=== PATIENT | female | born 1970 | race Caucasian/White ===

== ENCOUNTER 2024-02-15 23:14 | Emergency (ER) | payer BC ==
[2024-02-15] MEDS ORDERED: AMOX/K CLAV 875 MG TAB ONE (23:56)
[2024-02-15] MEDS ORDERED: IBUPROFEN 400 MG TAB ONE (23:56)
[2024-02-15] MEDS ORDERED: HYDROCODONE/APAP 5/325 MG TAB ONE (23:57)
--- NOTE | 2024-02-16 00:03 | ER ---
Nurse's Notes [facility] Name: Cleopatra Workman Age: 53 yrs Sex: Female : 1970 Arrival Date: 02/15/2024 Time: 23:14 Bed 12 Private MD: Diagnosis: Acute suppurative otitis media with spontaneous rupture of ear drum, right ear Presentation: 02/14 23:27 Chief complaint: Patient states: right ear pain and drainage. Coronavirus screen: At as6 this time, the client does not indicate any symptoms associated with coronavirus-19. Ebola Screen: No symptoms or risks identified at this time. Initial Sepsis Screen: Does the patient meet any 2 criteria? No. Patient's initial sepsis screen is negative. Does the patient have a suspected source of infection? No. Patient's initial sepsis screen is negative. Risk Assessment: Do you want to hurt yourself or someone else? Patient reports no desire to harm self or others. Onset of symptoms was February 15, 2024. 23:27 Method Of Arrival: Ambulatory as6 23:27 Acuity: AXEL 4 as6 Triage Assessment: 23:29 General: Appears in no apparent distress. Behavior is calm, cooperative. Pain: as6 Complains of pain in right ear. EENT: Reports pain in right ear. [employer]OR: 23:29 LMP N/A - Post-menopause, Not as6 Historical: - Allergies: 23:29 No Known Allergies; as6 - PMHx: 23:29 Alcoholism; as6 - PSHx: 23:29 hand; as6 - Immunization history:: Adult Immunizations up to date. - Infectious Disease History:: Denies. - Social history:: Smoking status: Patient reports the use of cigarette tobacco products, smokes one pack cigarettes per day. Screenin:48 [facility] ED Fall Risk Assessment (Adult) History of falling in the last 3 months, kl including since admission No falls in past 3 months (0 pts) Confusion or Disorientation No (0 pts) Intoxicated or Sedated No (0 pts) Impaired Gait No (0 pts) Mobility Assist Device Used No (0 pt) Altered Elimination No (0 pt) Score/Fall Risk Level 0 - 2 = Low Risk Oriented to surroundings, Maintained a safe environment. Abuse screen: Denies threats or abuse. Nutritional screening: No deficits noted. Tuberculosis screening: No symptoms or risk factors identified. Assessment: 23:47 General: Appears uncomfortable, Behavior is calm, cooperative. Pain: Complains of pain kl in right ear Pain currently is 8 out of 10 on a pain scale. Pain began 1 day ago. Neuro: No deficits noted. Cardiovascular: No deficits noted. Respiratory: No deficits noted. GI: No deficits noted. No signs and/or symptoms were reported involving the gastrointestinal system. : No deficits noted. No signs and/or symptoms were reported regarding the genitourinary system. EENT: Reports pain in right ear right ear drainage. Derm: No deficits noted. No signs and/or symptoms reported regarding the dermatologic system. Musculoskeletal: No deficits noted. No signs and/or symptoms reported regarding the musculoskeletal system. Vital Signs: 23:27 BP 150 / 79; Pulse 93; Resp 18 S; Temp 98.5(TE); Pulse Ox 96% on R/A; Weight 52.16 kg as6 (R); Height 4 ft. 11 in. (R); Pain 10; 02/15 00:20 BP 140 / 71; Pulse 71; Resp 18; Pulse Ox 99% ; kb3 02/14 23:27 Body Mass Index 23.23 (52.16 kg, 149.86 cm) as6 02/14 23:27 Pain Scale: Adult as6 ED Course: 02/14 23:19 Patient arrived in ED. jj6 23:29 Triage completed. as6 23:29 Arm band placed on. as6 23:38 Demetrius Rutherford PA is PHCP. cp 23:38 Drew Denton MD is Attending Physician. cp 23:48 No provider procedures requiring assistance completed. Patient did not have IV access kl during this emergency room visit. 02/15 00:02 Jessica Mcadams MD is Referral Physician. cp 00:21 Patient has correct armband on for positive identification. Provided Education on: kb3 Follow up, medications. Administered Medications: 02/14 23:59 Drug: Amoxicillin-Clavulanate PO 875 mg PO once Route: PO; kl 23:59 Drug: HYDROcodone-acetaminophen PO 5 mg-325 mg 1 tabs PO once Route: PO; kl 02/15 00:16 Follow up: Response: No adverse reaction; Pain is decreased kb3 02/14 23:59 Drug: Ibuprofen PO 600 mg PO once Route: PO; kl 02/15 00:16 Follow up: Response: No adverse reaction; Pain is decreased kb3 Medication: 00:21 VIS not applicable for this client. kb3 Outcome: 00:03 Discharge ordered by . keith 00:21 Discharged to home ambulatory, kb3 00:21 Condition: improved 00:21 Discharge instructions given to patient, Instructed on discharge instructions, follow up and referral plans. medication usage, Demonstrated understanding of instructions, follow-up care, medications, Prescriptions given X 3, 00:22 Patient left the ED. kb3 Signatures: Viky Pedroza, RN RN Demetrius Milner PA PA cp Jeffries, Jennifer jj6 Hans Sosa RN CASSIE as6 Shreya Beard, RN RN kb3
--- NOTE | 2024-02-16 00:04 | EDPHYS ---
Physician Documentation [facility] Name: Cleopatra Workman Age: 53 yrs Sex: Female : 1970 Arrival Date: 02/15/2024 Time: 23:14 Bed 12 Private MD: ED Physician Drew Denton HPI: 02/15 00:00 This 53 yrs old Female presents to ER via Ambulatory with complaints of Ear Pain, cp Drainage From Ear. 00:00 The patient presents with drainage, that is purulent, pain, tenderness. The complaints cp affect the right ear. 00:00 Onset: The symptoms/episode began/occurred today. cp 00:00 Associated signs and symptoms: Pertinent negatives: fever, sinus trouble. cp [employer]: 02/14 23:29 LMP N/A - Post-menopause, Not as6 Historical: - Allergies: 23:29 No Known Allergies; as6 - PMHx: 23:29 Alcoholism; as6 - PSHx: 23:29 hand; as6 - Immunization history:: Adult Immunizations up to date. - Infectious Disease History:: Denies. - Social history:: Smoking status: Patient reports the use of cigarette tobacco products, smokes one pack cigarettes per day. ROS: 02/15 00:02 Constitutional: HX per HPI cp Exam: 00:02 Constitutional: The patient appears in no acute distress, alert, awake, non-toxic, well cp developed, well nourished, 00:02 Head/Face: Normocephalic, atraumatic. cp 00:02 ENT: External ear(s): are unremarkable, Ear canal(s): purulent discharge, that is moderate, in the right canal, TM's: bulging, on the right, erythema, that is mild, on the right, Examination of the other ear shows no obvious abnormality, Mouth: is normal, Posterior pharynx: Airway: no evidence of obstruction, patent, 00:02 Neck: ROM/movement: is normal, is supple, without pain, no range of motions limitations, 00:02 Cardiovascular: Rate: normal, Vital Signs: 02/14 23:27 BP 150 / 79; Pulse 93; Resp 18 S; Temp 98.5(TE); Pulse Ox 96% on R/A; Weight 52.16 kg as6 (R); Height 4 ft. 11 in. (R); Pain 06/26; 02/15 00:20 BP 140 / 71; Pulse 71; Resp 18; Pulse Ox 99% ; kb3 02/14 23:27 Body Mass Index 23.23 (52.16 kg, 149.86 cm) as6 02/14 23:27 Pain Scale: Adult as6 MDM: 02/14 23:38 Patient medically screened. cp 02/15 00:03 Data reviewed: vital signs, nurses notes, and as a result, I will discharge patient. cp 00:03 Differential diagnosis: otitis media, otitis externa, ruptured TM, foreign body, cp cerumen impaction, barotrauma . I considered the following discharge prescriptions or medication management in the emergency department Medications were administered in the Emergency Department. See MAR. Counseling: I had a detailed discussion with the patient and/or guardian regarding the historical points, exam findings, and any diagnostic results supporting the discharge/admit diagnosis, the need for outpatient follow up, an ENT specialist. Administered Medications: 02/14 23:59 Drug: Amoxicillin-Clavulanate PO 875 mg PO once Route: PO; 23:59 Drug: HYDROcodone-acetaminophen PO 5 mg-325 mg 1 tabs PO once Route: PO; 02/15 00:16 Follow up: Response: No adverse reaction; Pain is decreased kb3 02/14 23:59 Drug: Ibuprofen PO 600 mg PO once Route: PO; 02/15 00:16 Follow up: Response: No adverse reaction; Pain is decreased kb3 Disposition Summary: 02/16/24 00:03 Discharge Ordered Notes: Location: Home cp Problem: new cp Symptoms: have improved cp Condition: Stable cp Diagnosis - Acute suppurative otitis media with spontaneous rupture of ear drum, right ear cp Followup: cp - With: Jessica Mcadams MD - When: 2 - 3 days - Reason: Recheck today's complaints Discharge Instructions: - Discharge Summary Sheet cp - Ear Drops, Adult cp - Otitis Media, Adult cp Forms: - Medication Reconciliation Form cp - Antibiotic Education cp - Prescription Opioid Use cp - Patient Portal Instructions cp - Leadership Thank You Letter cp Prescriptions: - Augmentin 875-125 mg Oral Tablet - take 1 tablet ORAL route every 12 hours for 10 days; 20 tablet; Refills: 0, cp Product Selection Permitted - Ibuprofen 600 mg Oral tablet - take 1 tablet ORAL route every 8 hours As needed take with food; 30 tablet; cp Refills: 0, Product Selection Permitted - Ciprodex 0.3-0.1 % Otic drops, suspension - instill 4 drops OTIC route every 12 hours for 7 days , for ears ONLY; 1 unit; cp Refills: 0, Product Selection Permitted Addendum: 02/17/2024 02:54 Co-signature as Attending Physician, Drew Denton MD I agree with the assessment s p4 and plan of care. I reviewed the patient's care provided by the Advanced Practice Provider and agree with the diagnosis and treatment plan. Signatures: Viky Pedroza RN RN kl Demetrius Rutherford PA PA Hans Tello RN RN as6 Drew Denton MD MD sp4 Shreya Beard RN kb3
[2024-02-16 01:15] VITALS: BP 140/71; TEMP 98.5; O2SAT 99
== END 2024-02-16 00:22 | disposition home or self-care (01) ==
LOC: ER 23:14
DX: H66.011 Acute suppurative otitis media with spontaneous rupture of ear drum, right ear (principal)
CPT/HCPCS: 99283